=== PATIENT | male | born 1950 | race Caucasian/White ===

== ENCOUNTER 2017-06-16 17:13 | Emergency (ER) | payer OTHER ==
[2017-06-16 18:55] VITALS: BP 203/102
[2017-06-16] MEDS ORDERED: Azelastine 0.05% Ophth Soln 6 ML Bottle EYERT ONE (19:45)
[2017-06-16] MEDS ORDERED: Ketorolac 0.5% Ophth Soln 3 ML Bottle EYERT ONE (19:46)
[2017-06-16] MEDS ORDERED: Ketorolac 0.5% Ophth Soln 3 ML Bottle EYERT SCH (20:00)
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
== END 2017-06-16 20:16 | disposition home or self-care (01) ==
LOC: JP.ED 17:13
DX: H11.421 Conjunctival edema, right eye (principal); I25.2 Old myocardial infarction; E11.9 Type 2 diabetes mellitus without complications; Z90.49 Acquired absence of other specified parts of digestive tract
CPT/HCPCS: 99283; A9270